=== PATIENT | male | born 1940 | race Caucasian/White ===

== ENCOUNTER 2024-02-14 10:08 | Outpatient (CLI) | payer MEDICARE, BC | END 2024-02-14 10:09 | disposition home or self-care (01) | LOC: CSHRAD 10:08 | PROVIDERS: ATTEND Internal Medicine Hematology & Oncology | DX: C90.00 Multiple myeloma not having achieved remission (principal); J90 Pleural effusion, not elsewhere classified; M19.012 Primary osteoarthritis, left shoulder | CPT/HCPCS: 77075 ==